=== PATIENT | female | born 1965 | race Hispanic/Latino ===

== ENCOUNTER → 2019-02-13 | Outpatient (CLI) | payer MEDICARE ==
[~2019-02-13] MED LIST: ACET-66 PO; FURO40TA5 PO; IOHEXOL-350 75 ML VIAL IV ONE; LORA-705 PO; TOCI80VI IV
== END | disposition home or self-care (01) ==
LOC: RAH 09:25
PROVIDERS: ATTEND Nurse Practitioner Family
DX: I82.90 Acute embolism and thrombosis of unspecified vein (principal); R51 Headache
CPT/HCPCS: 70496; Q9967